=== PATIENT | female | born 1985 | race Caucasian/White ===

== ENCOUNTER 2020-08-28 15:25 | Emergency (ER) | payer BC ==
[~2020-08-28] VITALS: Ht 154.9 cm; Wt 68.1 kg
--- NOTE | 2020-08-28 16:26 | RAD ---
EXAM: AP, oblique and lateral views right elbow DATE: 08/28/2020 4:01 PM INDICATION: Reason: R shoulder and R elbow pain after fall / Spl. Instructions: / History: COMPARISON: No Prior FINDINGS/ IMPRESSION: No evidence of acute fracture or dislocation. No joint effusion. Joint spaces are preserved without significant degenerative/proliferative change. Electronically signed by: Jose A Hernandez MD (08/28/2020 4:23 PM) [facility]
--- NOTE | 2020-08-28 16:26 | RAD ---
EXAM: 3 Views Right Shoulder DATE: 08/28/2020 4:01 PM INDICATION: Reason: R shoulder and R elbow pain after fall / Spl. Instructions: / History: COMPARISON: No Prior FINDINGS: There is no evidence for acute fracture or dislocation. AC joint is congruent. Humeral head is not high riding. IMPRESSION: 1. No acute fracture or dislocation. Electronically signed by: Jose A Hernandez MD (08/28/2020 4:23 PM) [facility]
[2020-08-28] MEDS ORDERED: HYDROcodone/APAP 5/325MG 1 TAB TABLET PO ONE (16:30)
--- NOTE | 2020-08-28 16:53 | ED.ADGEN ---
Past Medical History Past Medical History: No Pertinent History, Kidney Stone Past Surgical History: Other Additional Past Surgical Histo: kidney stones removed Smoking Status: Never Smoker Alcohol Use: None Drug Use: None General Adult EDM: Chief Complaint: ELBOW PROBLEM HPI: HPI: Patient is a 35 year old female who presents to the emergency room with complaints of pain in her right elbow and right shoulder after a fall down 4 steps today. Patient denies any head, neck, or back pain. She denies any loss of consciousness. She states that when she fell she landed on her right elbow and that the pain radiates up to her right shoulder. She currently rates her pa in a 7 out of 10 on the pain scale, she denies any alleviating factors, pain is worse with palpation and movement. Review of Systems: Review of Systems: Complete ROS is negative unless otherwise noted in HPI. Current Medications: Current Medications Medications (Trade) Dose Ordered Sig/Cynthia Start Time Stop Time Status Last Admin Dose Admin Acetaminophen/ Hydrocodone Bitart (Lortab 5/325) 1 tab 1X ONCE 08/28/20 16:30 08/28/20 16:31 DC 08/28/20 16:17 1 TAB Allergies: Allergies: Allergies Coded Allergies Type Severity Reaction Last Updated Verified Penicillins Allergy Intermediate 07/29/14 No Physical Exam: PE: See Above Constitutional: Well developed, well nourished, no acute distress, non-toxic appearance. [] HENT: Normocephalic, atraumatic, bilateral external ears normal, nose normal. [] Eyes: PERRLA, EOMI, conjunctiva normal, no discharge. [] Neck: Normal range of motion, no stridor. [] Cardiovascular:Heart rate regular rhythm Lungs & Thorax: Respirations even and unlabored, no retractions, no respiratory distress Skin: Warm, dry, no erythema, no rash; abrasion without bleeding noted to the lateral right elbow. [] Extremities: Right elbow: Lateral tenderness to palpation without crepitus or obvious deformity, no cyanosis, ROM intact, no edema; right shoulder: Diffuse tenderness to palpation, range of motion intact, no crepitus, no cyanosis, no obvious deformity. [] Neurologic: Alert and oriented X 3, no focal deficits noted. [] Psychologic: Affect normal, judgement normal, mood normal. [] Current Patient Data: Vital Signs: Vital Signs Date Time Temp Pulse Resp B/P (MAP) Pulse Ox O2 Delivery O2 Flow Rate FiO2 08/28/20 17:30 71 19 131/76 (94) 97 Room Air 08/28/20 15:35 98.1 98.1 EKG: EKG: [] Heart Score: Risk Factors: Risk Factors: DM, Current or recent (<one month) smoker, HTN, HLP, family history of CAD, obesity. Risk Scores: Score 0 - 3: 2.5% MACE over next 6 weeks - Discharge Home Score 4 - 6: 20.3% MACE over next 6 weeks - Admit for Clinical Observation Score 7 - 10: 72.7% MACE over next 6 weeks - Early Invasive Strategies Radiology/Procedures: Radiology/Procedures: PROCEDURE: SHOULDER 2+V RIGHT EXAM: 3 Views Right Shoulder DATE: 08/28/2020 4:01 PM INDICATION: Reason: R shoulder and R elbow pain after fall / Spl. Instructions: / History: COMPARISON: No Prior FINDINGS: There is no evidence for acute fracture or dislocation. AC joint is congruent. Humeral head is not high riding. IMPRESSION: 1. No acute fracture or dislocation.[] PROCEDURE: ELBOW RIGHT 3V EXAM: AP, oblique and lateral views right elbow DATE: 08/28/2020 4:01 PM INDICATION: Reason: R shoulder and R elbow pain after fall / Spl. Instructions: / History: COMPARISON: No Prior FINDINGS/ IMPRESSION: No evidence of acute fracture or dislocation. No joint effusion. Joint spaces are preserved without significant degenerative/proliferative change. Course & Med Decision Making: Course & Med Decision Making Pertinent Labs and Imaging studies reviewed. (See chart for details) [] Bobbi Disclaimer: Bobbi Disclaimer: This electronic medical record was generated, in whole or in part, using a voice recognition dictation system. Departure Departure Impression: Primary Impression: Right elbow pain Disposition: 01 DC HOME SELF CARE/HOMELESS Condition: STABLE Referrals: SWATI NORTON MD Patient Instructions: Elbow Contusion, [id number] Additional Instructions: You may take Tylenol or ibuprofen as needed for pain recommend application of ice to sore areas as needed for comfort. Wear the sling as needed for pain control. Follow-up with Dr. Norton if symptoms persist, return to the ER if symptoms worsen. Splinting Splinting : Location: Right arm Pre-Made Type: velcro (Sling with Reji wrap) Pre-Proc Neuro Vasc Exam: normal Post-Proc Neuro Vasc Exam: normal, unchanged from pre-exam KIRSTEN BERGMAN APRN Aug 28, 2020 16:53
--- NOTE | 2020-08-28 17:20 | RAD ---
Three-view right elbow radiographs 08/28/2020 CLINICAL HISTORY: Right elbow pain post fall. AP, lateral and oblique digital radiographs of the right elbow were obtained. No fracture or dislocation is seen. There is no radiographic evidence of a joint effusion. IMPRESSION: No fracture or dislocation of the right elbow is seen. Electronically signed by: Harvey Taveras MD (08/28/2020 5:17 PM) [id number]
[2020-08-28 17:30] VITALS: BP 131/76
== END 2020-08-28 17:36 | disposition home or self-care (01) ==
LOC: ER 15:25
DX: M25.521 Pain in right elbow (principal); M25.511 Pain in right shoulder; G89.11 Acute pain due to trauma; Z88.0 Allergy status to penicillin; W10.8XXA Fall (on) (from) other stairs and steps, initial encounter; Y93.89 Activity, other specified; Y92.89 Other specified places as the place of occurrence of the external cause; Y99.8 Other external cause status
CPT/HCPCS: 29125; 73030; 73080; 99284; A4565

== ENCOUNTER 2020-10-31 19:53 | Emergency (ER) | payer BC ==
[~2020-10-31] VITALS: Ht 154.9 cm; Wt 63.6 kg
[2020-10-31 19:55] VITALS: BP 105/65
[2020-10-31] MEDS ORDERED: diphenhydrAMINE 50 MG/ML VIAL IM ONE (20:15)
[2020-10-31] MEDS ORDERED: DEXAMETHASONE SOD PHOS 20 MG/5 ML VIAL. IM ONE (20:15)
--- NOTE | 2020-10-31 20:21 | ED.ADGEN ---
Past Medical History Past Medical History: Anxiety, Depression, Kidney Stone, Other Additional Past Medical Histor: PSORASIS Past Surgical History: Other Additional Past Surgical Histo: kidney stones removed Smoking Status: Former Smoker Alcohol Use: None Drug Use: None General Adult EDM: Chief Complaint: ITCHING HPI: HPI: Patient is a 35 year old female with worsening pruritic rash. Patient was diagnosed with psoriasis about 1 year ago as well as her medications. Took Taltz in late September and has been having contractions 2 appears arm primary about 5 days ago was given a steroid shot and hydroxyzine with improvement but states that the rash started to come back. Unsure which steroid she was given. Patient does not want prednisone because she says it makes her psoriasis come back worse. Otherwise been well denies any difficulty breathing or swallowing. Review of Systems: Review of Systems: All other systems within normal limits except for as noted in the HPI Current Medications: Current Medications Medications (Trade) Dose Ordered Sig/Cynthia Start Time Stop Time Status Last Admin Dose Admin Dexamethasone Sodium Phosphate (Decadron) 10 mg 1X ONCE 10/31/20 20:15 10/31/20 20:16 UNV Diphenhydramine HCl (Benadryl) 50 mg 1X ONCE 10/31/20 20:15 10/31/20 20:16 UNV Allergies: Allergies: Allergies Coded Allergies Type Severity Reaction Last Updated Verified Penicillins Allergy Intermediate 07/29/14 No ixekizumab Allergy Unknown UNKNOWN 10/31/20 Yes Physical Exam: PE: Constitutional: Well developed, well nourished, no acute distress, non-toxic appearance. [] HENT: Normocephalic, atraumatic, bilateral external ears normal, nose normal. [] Eyes: PERRLA, conjunctiva normal, no discharge. [] Neck: No rigidity, supple, no stridor. [] Cardiovascular: Regular rate and rhythm, brisk cap refill [] Lungs & Thorax: Non labored symmetric respirations, no tachypnea or respiratory distress [] Abdomen: Soft, nondistended. Skin: Diffuse erythematous blanching rash. Areas consistent with psoriasis and others consistent with hives. [] Back: Unremarkable Extremities: No deformities, range of motion grossly intact, no lower extremity edema [] Neurologic: Alert and oriented X 3, no focal deficits noted. [] Psychologic: Affect normal, judgement normal, mood normal. [] Current Patient Data: Vital Signs: Vital Signs Date Time Temp Pulse Resp B/P (MAP) Pulse Ox O2 Delivery O2 Flow Rate FiO2 10/31/20 19:55 98.5 87 16 105/65 (78) 98 Room Air 98.5 EKG: EKG: [] Heart Score: Risk Factors: Risk Factors: DM, Current or recent (<one month) smoker, HTN, HLP, family history of CAD, obesity. Risk Scores: Score 0 - 3: 2.5% MACE over next 6 weeks - Discharge Home Score 4 - 6: 20.3% MACE over next 6 weeks - Admit for Clinical Observation Score 7 - 10: 72.7% MACE over next 6 weeks - Early Invasive Strategies Radiology/Procedures: Radiology/Procedures: [] Course & Med Decision Making: Course & Med Decision Making This is a patient with steroid injection and Benadryl injection for symptom management so she can follow-up with her primary. Discussed that the Taltz medication has a long half-life and she might having rebound allergic reactions from her previous dose after her last round of steroid injection wore off Dragon Disclaimer: Bobbi Disclaimer: This electronic medical record was generated, in whole or in part, using a voice recognition dictation system. Departure Departure Impression: Primary Impression: Allergic drug rash Disposition: DC HOME SELF CARE/HOMELESS Condition: STABLE Referrals: UNKNOWN PCP NAME (PCP) Patient Instructions: ANAYA Mejia MD Oct 31, 2020 20:21
== END 2020-10-31 20:45 | disposition home or self-care (01) ==
LOC: ER 19:53
DX: R21 Rash and other nonspecific skin eruption (principal); T49.3X5A Adverse effect of emollients, demulcents and protectants, initial encounter; L29.9 Pruritus, unspecified; F41.9 Anxiety disorder, unspecified; F32.9 Major depressive disorder, single episode, unspecified; Z87.442 Personal history of urinary calculi; Z87.891 Personal history of nicotine dependence; Z98.890 Other specified postprocedural states; Z88.8 Allergy status to other drugs, medicaments and biological substances; Y92.89 Other specified places as the place of occurrence of the external cause
CPT/HCPCS: 96372; 99284; J1100; J1200